=== PATIENT | male | born 1995 | race Two or more races ===

== ENCOUNTER 2017-12-03 09:50 | Emergency (ER) | payer SELFPAY ==
[2017-12-03 09:56] VITALS: BP 113/60
--- NOTE | 2017-12-03 11:03 | ER Document Report ---
HPI - HPI Patient complains to provider of: Sore throat Pain Level: 5 Context: Patient is a 22-year-old healthy male presenting to the emergency department complaining of a sore throat 4 days. Patient denies cough or postnasal drip. Patient has had a fever, headache, body aches. No known strep exposure. Associated Symptoms: Body/muscle aches, Fever, Headache, Nausea Exacerbated by: Denies Relieved by: Denies Similar symptoms previously: Yes Recently seen / treated by doctor: No - EENT EENT: REPORTS: Sore Throat Past Medical History - General Information source: Patient - Social History Smoking Status: Unknown if Ever Smoked Frequency of alcohol use: None Drug Abuse: None Occupation: Fast food Lives with: Family Family History: Reviewed & Not Pertinent Patient has suicidal ideation: No Patient has homicidal ideation: No Pulmonary Medical History: Reports: Hx Asthma Renal/ Medical History: Denies: Hx Peritoneal Dialysis Vertical Provider Document - CONSTITUTIONAL Agree With Documented VS: Yes Exam Limitations: No Limitations - INFECTION CONTROL TRAVEL OUTSIDE OF THE [place] IN LAST 30 DAYS: No - HEENT HEENT: Atraumatic, PERRLA, Pharyngeal Tenderness, Pharyngeal Erythema. negative : Pharyngeal Exudate - NECK Neck: Normal Inspection, Lymphadenopathy-Left - Positive anterior cervical adenopathy, Lymphadenopathy-Right - RESPIRATORY Respiratory: Breath Sounds Normal - CARDIOVASCULAR Cardiovascular: Regular Rate, Regular Rhythm - GI/ABDOMEN Gastrointestinal: Abdomen Soft, Abdomen Non-Tender - BACK Back: Normal Inspection - MUSCULOSKELETAL/EXTREMETIES Musculoskeletal/Extremeties: ZENOBIA ROBERTS - NEURO Level of Consciousness: Awake, Alert, Appropriate Course - Re-evaluation Re-evalutation: 12/03/17 11:00 History and physical are consistent with strep pharyngitis. There are no signs and symptoms of peritonsillar abscess, Sami angina, sepsis or dehydration. There is no airway compromise. No trismus. No muffled voice. No difficulty swallowing or talking. Will provide a course of antibiotics. Contact precautions explained to patient. Home care, primary care follow-up and ED precautions discussed with patient. Patient is agreeable with plan and stable for discharge - Vital Signs Vital signs: Temp Pulse Resp BP Pulse Ox 98.2 F 70 14 113/60 100 12/03/17 09:55 12/03/17 09:55 12/03/17 09:55 12/03/17 09:55 12/03/17 09:55 Discharge - Discharge Clinical Impression: Pharyngitis Qualifiers: Pharyngitis/tonsillitis etiology: unspecified etiology Qualified Code(s): J02.9 - Acute pharyngitis, unspecified Condition: Stable Disposition: HOME, SELF-CARE Instructions: Penicillin V K ([facility]), Strep Throat ([facility]) Additional Instructions: You are being treated for strep throat infection Take all of your antibiotic as prescribed Recommend a new toothbrush in 48 hours Lozenges and salt water gargles for comfort Follow-up with your primary care Return to the emergency department for any worsening symptoms Prescriptions: Penicillin V Potassium [Penicillin Vk 500 mg Tablet] 500 mg PO BID #20 tablet Forms: Return to Work
== END 2017-12-03 11:12 | disposition home or self-care (01) ==
LOC: ER 09:50
DX: J02.9 Acute pharyngitis, unspecified (principal); R50.9 Fever, unspecified; R51 Headache; M79.1 Myalgia; R11.0 Nausea; J45.909 Unspecified asthma, uncomplicated
CPT/HCPCS: 99282